=== PATIENT | male | born 1960 | race Caucasian/White ===

== ENCOUNTER 2023-04-13 17:09 | Inpatient (IN) | payer OTHER, MEDICAID ==
[~2023-04-13] VITALS: Ht 185.4 cm; Wt 104.3 kg
[2023-04-13] MEDS: NACL 0.9% 1,000 ML IV SCH (10:30)
[2023-04-13 17:24] VITALS: BP_SYST 108; PULSE 157; RESP 20; TEMP 97.8
[2023-04-13 17:55] LABS: BASOPHILS % (AUTO) 0.4 % (0.0-2.0); EOSINOPHILS % (AUTO) 0.5 % (0.0-4.0); HEMATOCRIT 42.8 % (36-54); HEMOGLOBIN 14.7 g/dL (14.0-18.0); LYMPHOCYTES # (AUTO) 1.2 K/uL (1.0-5.5); LYMPHOCYTES % (AUTO) 16.7 % (20.5-51.5); MEAN CORPUSCULAR HEMOGLOBIN 34 pg (27-31); MEAN CORPUSCULAR HGB CONC 34 % (32-36); MEAN CORPUSCULAR VOLUME 99 fL (79.0-98.0); MONOCYTES # (AUTO) 0.7 K/uL (0.0-1.0); MONOCYTES % (AUTO) 9.2 % (1.7-9.3); NEUTROPHILS # (AUTO) 5.4 K/uL (1.8-7.7); NEUTROPHILS % (AUTO) 73.2 % (40.0-70.0); PLATELET COUNT (AUTO) 181 K/uL (130-430); RED BLOOD CELL COUNT(AUTO) 4.35 MIL/uL (4.2-6.2); RED CELL DISTRIBUTION WIDTH 12.8 % (9.0-15.0); WHITE BLOOD COUNT (AUTO) 7.4 K/uL (4.8-10.8)
[2023-04-13 18:00] LABS: ANION GAP 10 (5-15); CALCIUM 8.6 mg/dL (8.4-11.0); CARBON DIOXIDE 26 mmol/L (23-29); CHLORIDE 102 mmol/L (98-107); CREATININE 1.03 mg/dL (0.55-1.30); GFR AFRICAN AMERICAN 94 mL/min (>90); GLUCOSE 102 mg/dL (74-106); POTASSIUM 4.5 mmol/L (3.5-5.1); SODIUM SERUM 138 mmol/L (136-145); UREA NITROGEN, BLOOD 14 mg/dL (8-21)
[2023-04-13 18:04] LABS: GFR NON AFRICAN-AMERICAN 78 mL/min (>90)
[2023-04-13] MEDS: dilTIAZem HCL IVP 5 MG/ML VIAL IVP ONE (18:47)
[2023-04-13] MEDS: DILTIAZEM HCL 120 MG CAP.SR.24H PO ONE ×2 (18:49→22:00)
[2023-04-13] MEDS ORDERED: RIVA10TA PO (20:09)
[2023-04-13] MEDS ORDERED: LORazepam 2 MG/ML VIAL IVP PRN (20:15)
[2023-04-13] MEDS ORDERED: MORPHINE 2 MG/ML INJ. SYRINGE IVP PRN ×2 (20:15)
[2023-04-13] MEDS ORDERED: MAGNESIUM SULFATE 50 ML IV PRN (20:15)
[2023-04-13] MEDS ORDERED: POTASSIUM CHLORIDE 20 MEQ TABLET.ER PO PRN (20:15)
[2023-04-13] MEDS ORDERED: ONDANSETRON HCL 4 MG/2 ML VIAL IVP PRN (20:15)
[2023-04-13] MEDS ORDERED: MUPIROCIN 2% TOPICAL OINTMENT 22 GM NS PRN (20:15)
[2023-04-13] MEDS ORDERED: ACETAMINOPHEN 500 MG TABLET PO PRN ×3 (20:15)
[2023-04-13] MEDS ORDERED: DOCUSATE SODIUM 100 MG CAPSULE PO PRN (20:15)
[2023-04-13] MEDS ORDERED: ZOLPIDEM TARTRATE 5 MG TABLET PO PRN (20:15)
[2023-04-13 20:27] LABS: FREE T4 (FREE THYROXINE) 0.8 ng/dL (0.6-1.6); THYROID STIMULATING HORMONE 3.1 uIu/mL (0.34-4.82)
[2023-04-13] MEDS: HEPARIN SODIUM,PORCINE 5,000 UNITS/ML VIAL SUBCUT SCH (21:00)
[2023-04-13] MEDS ORDERED: DILTIAZEM HCL 60 MG TABLET ONE (22:25)
[2023-04-13] MEDS: METOPROLOL TARTRATE 25 MG TABLET PO SCH (22:27)
[2023-04-13 23:42] LABS: BILIRUBIN,URINE NEGATIVE (NEGATIVE); BLOOD, URINE NEGATIVE (NEGATIVE); COLOR,URINE YELLOW (YELLOW); GLUCOSE,URINE NEGATIVE (NEGATIVE); KETONES,URINE NEGATIVE (NEGATIVE); LEUKOCYTE ESTERASE ,URINE NEGATIVE (NEGATIVE); NITRITE, URINE NEGATIVE (NEGATIVE); PROTEIN URINE 1+ (NEGATIVE); UROBILINOGEN,URINE 0.2 (0.2-1.0)
[2023-04-13 23:55] LABS: CLARITY/URINE HAZY (CLEAR)
[2023-04-13 23:57] LABS: BACTERIA,URINE None Seen /HPF (None Seen); RBC,URINE 0-3 /HPF (0-3); WBC,URINE 0-3 /HPF (0-3)
[2023-04-14 09:28] LABS: BASOPHILS % (AUTO) 0.2 % (0.0-2.0); EOSINOPHILS % (AUTO) 0.9 % (0.0-4.0); HEMATOCRIT 42.6 % (36-54); HEMOGLOBIN 14.6 g/dL (14.0-18.0); LYMPHOCYTES # (AUTO) 1.2 K/uL (1.0-5.5); LYMPHOCYTES % (AUTO) 24.3 % (20.5-51.5); MEAN CORPUSCULAR HEMOGLOBIN 34 pg (27-31); MEAN CORPUSCULAR HGB CONC 34 % (32-36); MEAN CORPUSCULAR VOLUME 99 fL (79.0-98.0); MONOCYTES # (AUTO) 0.5 K/uL (0.0-1.0); MONOCYTES % (AUTO) 9.6 % (1.7-9.3); NEUTROPHILS # (AUTO) 3.3 K/uL (1.8-7.7); PLATELET COUNT (AUTO) 160 K/uL (130-430); RED BLOOD CELL COUNT(AUTO) 4.31 MIL/uL (4.2-6.2)
[2023-04-14 10:17] LABS: CALCIUM 8.5 mg/dL (8.4-11.0); CREATININE 0.91 mg/dL (0.55-1.30); POTASSIUM 4.3 mmol/L (3.5-5.1)
[2023-04-14 14:25] VITALS: BP_SYST 101; PULSE 74; RESP 18; TEMP 98
[2023-04-14 14:27] VITALS: O2SAT 96
[2023-04-14 14:39] VITALS: BP_SYST 101; PULSE 74; RESP 18; TEMP 98
[2023-04-14 17:18] VITALS: BP_SYST 115; PULSE 75; RESP 18; TEMP 98; O2SAT 94
[2023-04-14] MEDS: AMIODARONE HCL 200 MG TABLET PO SCH (17:30)
[2023-04-14] MEDS: RIVAROXABAN 10 MG TABLET PO SCH (17:41)
[2023-04-14 19:00] VITALS: O2SAT 98
[2023-04-14 20:00] VITALS: BP_SYST 114; PULSE 80; RESP 18; TEMP 97.4; O2SAT 98
[2023-04-15] VITALS: BP_SYST 117; PULSE 79; RESP 19; TEMP 97.6
[2023-04-15 06:28] LABS: BASOPHILS % (AUTO) 0.3 % (0.0-2.0); EOSINOPHILS # (AUTO) 0.1 K/uL (0.0-0.4); EOSINOPHILS % (AUTO) 1.8 % (0.0-4.0); HEMATOCRIT 40.8 % (36-54); HEMOGLOBIN 13.9 g/dL (14.0-18.0); LYMPHOCYTES # (AUTO) 1.1 K/uL (1.0-5.5); LYMPHOCYTES % (AUTO) 26.7 % (20.5-51.5); MEAN CORPUSCULAR HEMOGLOBIN 34 pg (27-31); MEAN CORPUSCULAR HGB CONC 34 % (32-36); MEAN CORPUSCULAR VOLUME 99 fL (79.0-98.0); MONOCYTES # (AUTO) 0.5 K/uL (0.0-1.0); MONOCYTES % (AUTO) 12.3 % (1.7-9.3); NEUTROPHILS # (AUTO) 2.5 K/uL (1.8-7.7); NEUTROPHILS % (AUTO) 58.9 % (40.0-70.0); PLATELET COUNT (AUTO) 157 K/uL (130-430); RED BLOOD CELL COUNT(AUTO) 4.13 MIL/uL (4.2-6.2); RED CELL DISTRIBUTION WIDTH 12.9 % (9.0-15.0); WHITE BLOOD COUNT (AUTO) 4.2 K/uL (4.8-10.8)
[2023-04-15 06:56] LABS: CALCIUM 8.4 mg/dL (8.4-11.0); CREATININE 0.98 mg/dL (0.55-1.30); POTASSIUM 4.1 mmol/L (3.5-5.1)
[2023-04-15 08:00] VITALS: BP_SYST 110; PULSE 69; RESP 20; TEMP 97.8; O2SAT 98
[2023-04-15] MEDS ORDERED: RIVA20TA PO (10:20)
[2023-04-15] MEDS ORDERED: METO25TA3 PO (10:20)
[2023-04-15] MEDS ORDERED: AMIO200T66 PO (10:20)
[2023-04-15 11:04] VITALS: BP_SYST 116; PULSE 66; RESP 14; TEMP 97.1; O2SAT 97
[2023-04-15 13:55] VITALS: BP_SYST 97; PULSE 66; RESP 14; TEMP 97.1; O2SAT 68
[2023-04-15] MEDS ORDERED: AMIODARONE HCL 200 MG TABLET PO SCH (21:00)
[2023-04-16] MEDS ORDERED: METOPROLOL SUCCINATE 25 MG TAB.SR.24H (TOPROL XL) PO SCH (09:00)
== END 2023-04-15 14:50 | disposition home or self-care (01) | DRG 309 ==
LOC: SED 17:09 → STU 20:09
PROVIDERS: ADMIT General Practice; ATTEND General Practice
DX: I48.20 Chronic atrial fibrillation, unspecified (principal); R65.10 Systemic inflammatory response syndrome (SIRS) of non-infectious origin without acute organ dysfunction; M17.12 Unilateral primary osteoarthritis, left knee; Z87.891 Personal history of nicotine dependence; Z86.718 Personal history of other venous thrombosis and embolism; Z86.711 Personal history of pulmonary embolism; Z79.01 Long term (current) use of anticoagulants
CPT/HCPCS: 36415; 71045; 80048; 81000; 81001; 81015; 83037; 83735; 83880; 84439; 84443; 84484; 85025; 93005; 93306; 96372; 96374; 99285; G0378; J1644; J3490